=== PATIENT | female | born 1995 | race American Indian/Alaskan Native ===

== ENCOUNTER 2021-04-03 07:52 | Inpatient (IN) | payer MEDICAID ==
[~2021-04-03 07:52] MED LIST: EPINEPHrine 1 MG/1 ML Amp ONE; fentaNYL 100 MCG/2 ML SDV ITHECAL ONE
[2021-04-03] MEDS ORDERED: Ondansetron 4 MG/2 ML SDV IVPUSH PRN (09:07)
[2021-04-03] MEDS ORDERED: Tranexamic Acid 1,000 MG in Sodium Chloride 0.9% 100 ML IV PRN ×4 (09:07)
[2021-04-03] MEDS ORDERED: Acetaminophen 325 MG Tab PO PRN ×2 (09:07)
[2021-04-03] MEDS ORDERED: Simethicone 80 MG Tab.Chew PO PRN (09:07)
[2021-04-03] MEDS ORDERED: Carboprost Tromethamine 250 MCG/1 ML Amp IM PRN ×2 (09:07)
[2021-04-03] MEDS ORDERED: Misoprostol 25 MCG (1/4 of 100 MCG) Tab VAG PRN (09:07)
[2021-04-03] MEDS ORDERED: Lidocaine 1% 30 ML SDV INJECT PRN (09:07)
[2021-04-03] MEDS ORDERED: Lactated Ringers 1,000 ML IV ONE (09:07)
[2021-04-03] MEDS ORDERED: Misoprostol 400 MCG (4 X 100 MCG TAB) RECTAL PRN ×2 (09:07)
[2021-04-03] MEDS ORDERED: Methylergonovine 0.2 MG/1 ML Amp IM PRN (09:07)
[2021-04-03] MEDS ORDERED: Zolpidem 5 MG Tab PO PRN (09:07)
[2021-04-03] MEDS ORDERED: Benzocaine/Menthol 20%-0.5% Spray 78 GM Cannister TOP PRN (09:07)
[2021-04-03] MEDS ORDERED: Sodium Chloride 0.9% 10 ML Syringe FLUSH PRN (09:07)
[2021-04-03] MEDS ORDERED: Oxytocin 10 Units/1 ML SDV IM PRN (09:07)
[2021-04-03] MEDS ORDERED: Oxytocin/Normal Saline 30 UNIT/500 ML BAG IV SCH (09:15)
--- NOTE | 2021-04-03 13:34 | HP ---
CHIEF COMPLAINT: Induction of labor. HISTORY OF PRESENT ILLNESS: Ms. Louise is a 25-year-old, 2, para 1-0-0-1 female, last menstrual period 06/21/2020, EDC 03/30/2021, EGA 40-4/7 weeks' gestation, which is consistent with early ultrasound and last menstrual period. She is here for induction of labor. She has had all her care except for one visit in [place]. I saw her on 04/01/2021 in my office in [place]. She has not had any issues or concerns in her . She denies any nausea, vomiting, diarrhea, fever, chills, leakage of fluid, irregular contractions, dysuria, frequency, urgency with urination, leg pain, leg edema, back pain or abdominal pain. PAST MEDICAL HISTORY: Positive for anxiety and depression. No history of diabetes, hypertension, heart disease, cancer, autoimmune disorder, kidney disease, UTIs, seizure disorder, neurological disorder, psychiatric illness, liver disease, hepatitis, thromboembolic disease, history of blood transfusions, asthma, or breast lesions. SOCIAL HISTORY: She denies any tobacco use, alcohol use, or illicit drug use. She does not use caffeine. She denies any domestic violence issues. She feels safe at home. She wears seat belts. She is single. Her significant other is Julio C Potts. He is involved. FAMILY HISTORY: Positive for hypertension, hypercholesterolemia, diabetes, gallbladder issues, lung cancer. No family history of heart disease, kidney disease, thyroid disease. GYNECOLOGICAL HISTORY: Menarche at age 12. Menses once a month lasting for 7 days. She has never had abnormal Pap smear or history of STIs. OBSTETRICAL HISTORY: On May 18, 2011, delivery of 6 pounds 10 ounce female via normal spontaneous vaginal delivery of 40-3/7 weeks' gestation, no sequelae. MEDICATIONS: vitamins. PAST SURGICAL HISTORY: Appendectomy at age 11 and tonsillectomy at age 9. ALLERGIES: No known drug allergies. REVIEW OF SYSTEMS: All pertinent positive and negative review of systems per HPI. All other systems reviewed are negative. A 10-point review of systems discussed with the patient. She has no other issues. [place] depression scale score of 9. She has no thoughts of harming herself, the baby or anyone else. She plans on starting antidepressant medications after the baby is born. She sees Dony Cohen for counseling in [place]. OBJECTIVE: General: A well-developed, well-nourished female, in no acute distress. Vital Signs: Stable, afebrile. Blood pressure 129/65, pulse 84, respirations 18, O2 saturation 99%, temperature 97.8 degrees. HEENT: Unremarkable. Throat, normal oral mucosa. Neck: Supple without adenopathy. No thyromegaly. Respiratory: Breathing normal. Clear to auscultation. No wheezing, rhonchi, or rales noted. Cardiovascular: Regular rate and rhythm without murmurs. No bruits noted. Abdomen: Fundal height 40 cm. heart tones in the 130s to 140s. Reactive nonstress test. Occasional contraction. Genitourinary: Cervix is closed, 80%, -2, and soft. Extremities: No edema, erythema, or tenderness noted. Skin: No rashes, lesions, or ulcerations. Good turgor. Neurological: Sensory and motor intact. Psychiatric: Alert and oriented x3. Normal affect. 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 Extremities: No edema, erythema, or tenderness noted. LAB: A Positive, Ab screen- Neg, Rubella Immune, Syphilis- Neg, Hepatitis B- Neg, HIV- Neg, Group b strep - Neg Hgb- 10.8. ASSESSMENT: 1. A 40-4/7-week intrauterine . 2. Chronic anemia of . 3. Group B Streptococcus negative. 4. COVID-19 negative. PLAN: 1. The patient to undergo Cytotec cervical ripening and Pitocin induction if needed. 2. The risks, benefits, complications, side effects of induction of labor were discussed with the patient including infection, bleeding, tachysystole, increased risk for section. 3. All questions answered. 4. Despite all this, she still wants to have the induction accomplished. [facility] /[id number] MTDGia
[2021-04-03] MEDS: Lactated Ringers 1,000 ML IV SCH (14:20)
[2021-04-03] MEDS: Oxytocin/Normal Saline 30 UNIT/500 ML BAG IV SCH (14:43)
--- NOTE | 2021-04-03 18:59 | PCM.PNLD ---
Labor Progress Note - VS & Meds Vital Signs: Last Vital Signs Temp 97.8 F 04/03/21 16:30 Pulse 87 04/03/21 18:30 Resp 16 04/03/21 17:30 BP 115/56 L 04/03/21 18:30 Pulse Ox Active Medications: Current Medications Acetaminophen (Acetaminophen 325 Mg Tab) 650 mg PO Q4H PRN PRN Reason: Pain 1-3/Fever Benzocaine/Menthol (Benzocaine/Menthol 20%-0.5% [place] 78 Gm Cannister) 0 gm TOP Q4H PRN PRN Reason: Perineal comfort measures Carboprost Tromethamine (Carboprost Tromethamine 250 Mcg/1 Ml Amp) 250 mcg IM ASDIRECTED PRN PRN Reason: Excessive vaginal bleeding Docusate Sodium (Docusate Sodium 100 Mg Cap) 100 mg PO BID PRN PRN Reason: Constipation Lactated Ringer's (Ringers, Lactated) 1,000 mls @ 125 mls/hr IV ASDIRECTED TUSHAR Last Admin: 04/03/21 14:20 Dose: 125 mls/hr Documented by: Oxytocin/Sodium Chloride (Pitocin In Ns 30 Unit/500 Ml) 30 unit in 500 mls @ 2 mls/hr IV TITRATE TUSHAR; Protocol Last Titration: 04/03/21 17:55 Dose: 5 munits/min, 5 mls/hr Documented by: Tranexamic Acid 1,000 mg/ (Sodium Chloride) 110 mls @ 660 mls/hr IV ONETIME PRN PRN Reason: Bleeding Ibuprofen (Ibuprofen 800 Mg Tab) 800 mg PO Q8H PRN PRN Reason: Cramping Lidocaine HCl (Lidocaine 1% 30 Ml Sdv) 30 ml INJECT ASDIRECTED PRN PRN Reason: Perineal Repair Methylergonovine Maleate (Methylergonovine 0.2 Mg/1 Ml Amp) 0.2 mg IM ASDIRECTED PRN PRN Reason: Hemorrhage Misoprostol (Misoprostol 400 Mcg (4 X 100 Mcg Tab)) 800 mcg RECTAL ASDIRECTED PRN PRN Reason: Hemorrhage Misoprostol (Misoprostol 25 Mcg (1/4 Of 100 Mcg) Tab) 25 mcg VAG Q4H PRN PRN Reason: cervical ripening Last Admin: 04/03/21 09:52 Dose: 25 mcg Documented by: Ondansetron HCl (Ondansetron 4 Mg/2 Ml Sdv) 4 mg IVPUSH Q4H PRN PRN Reason: Nausea/Vomiting Oxytocin (Oxytocin 10 Units/1 Ml Sdv) 10 unit IM ONETIME PRN PRN Reason: Bleeding Prenat Multivit/Flight Engineer Inspector/Iron/Folic Ac ( Multivitamin With Calcium/Folic Acid/Iron Tab) 1 each PO DAILY TUSHAR Simethicone (Simethicone 80 Mg Tab.Chew) 80 mg PO Q4H PRN PRN Reason: Gas Sodium Chloride (Sodium Chloride 0.9% 10 Ml Syringe) 10 ml FLUSH ASDIRECTED PRN PRN Reason: Keep Vein Open Zolpidem Tartrate (Zolpidem 5 Mg Tab) 5 mg PO BEDTIME PRN PRN Reason: Insomnia Discontinued Medications Lactated Ringer's (Ringers, Lactated) 1,000 mls @ 1,000 mls/hr IV BOLUS ONE Stop: 04/03/21 10:06 - Uterine Contractions Uterine Monitoring Mode: External [place] Contraction Frequency (min): 2-2.5 Contraction Duration (sec): 50-90 Contraction Intensity: Moderate Uterine Resting Tone: Soft - Monitoring Monitor Mode: External Ultrasound Heart Rate (FHR) Baseline: 140 Heart Rate (FHR) Variability: Moderate (6-25 bmp) Decelerations: Variable Strip Review: Category I (AROM, Clear fluid) - Vaginal Exam Dilation (cm): 2 Effacement (Percent): 80 Station: -2 Cervical Position: Midposition Sterile Vaginal Exam Performed By: Harshad Lu
[2021-04-04] MEDS ORDERED: fentaNYL 100 MCG/2 ML SDV IVPUSH ONE (00:23)
[2021-04-04] MEDS ORDERED: Nalbuphine 10 MG/1 ML Vial IM ONE ×2 (00:24→08:00)
[2021-04-04] MEDS: Lactated Ringers 1,000 ML IV SCH ×3 (01:11→05:12)
[2021-04-04] MEDS ORDERED: fentaNYL 100 MCG/2 ML SDV ONE (02:46)
[2021-04-04] MEDS ORDERED: EPINEPHrine 1 MG/ML SDV ONE ×2 (02:47→06:33)
--- NOTE | 2021-04-04 03:25 | PCM.PRNOTE ---
- Free Text/Narrative Note: Requested to provide analgesia to full term patient in severe pain. Upon entering the room, patient is sitting on edge of bed complaining of severe abdominal/pelvic pain and discomfort. Procedure was discussed with patient including adverse outcomes and expectations. Pt consented to analgesia, SAB/IT. Pt placed into a proper sitting position. Landmarks for SAB/IT were identified and marked. Hands were washed and appropriate PPE was applied. Back was prepped with betadine x3. A sterile, transparent, fenestrated drape was applied. Excess betadine was removed. Using 3 mL of a 1% lidocaine solution, a skin wheel was placed at the L2/L3 interspace. A 24 ga (4 inch) [place] spinal needle was inserted until positive for CSF. Negative for heme or paresthesias. Injected fentanyl 25 mcg, sufentanil 25 mcg, and 7.5 mg of a 0.75% bupivacaine solution with an epi wash. Pt was placed left lateral tilt position for approximately 20 minutes. There were zero complications or adverse outcomes. Will continue to monitor. Procedure Date & Time: 04/04/2021 [id number]
[2021-04-04] MEDS ORDERED: diphenhydrAMINE 50 MG Cap PO ONE (05:06)
[2021-04-04] MEDS ORDERED: diphenhydrAMINE 25 MG Tab PO ONE (05:15)
[2021-04-04] MEDS ORDERED: Measles, Mumps & Rubella Vaccine 0.5 ML SDV SUBCUT ONE (07:00)
--- NOTE | 2021-04-04 07:54 | PCM.PRNOTE ---
- Free Text/Narrative Note: Requested to provide analgesia to full term patient in severe pain. Upon entering the room, patient is sitting on edge of bed complaining of severe abdominal/pelvic pain and discomfort. Procedure was discussed with patient including adverse outcomes and expectations. Pt consented to analgesia, SAB/IT. Pt placed into a proper sitting position. Landmarks for SAB/IT were identified and marked. Hands were washed and appropriate PPE was applied. Back was prepped with betadine x3. A sterile, transparent, fenestrated drape was applied. Excess betadine was removed. Using 3 mL of a 1% lidocaine solution, a skin wheel was placed at the L2/L3 interspace. A 24 ga (4 inch) [place] spinal needle was inserted until positive for CSF. Negative for heme or paresthesias. Injected sufentanil 25 mcg, and 10 mg of a 0.75% bupivacaine solution with an epi wash. Pt was placed left lateral tilt position for approximately 20 minutes. There were zero complications or adverse outcomes. Will continue to monitor. Procedure Date & Time: 04/04/21 [id number]
--- NOTE | 2021-04-04 10:11 | PCM.DEL ---
L & D Note - General Info Date of Service: 04/04/21 ( at 0945) Mother's Due Date: 03/30/21 (40 5/7 weeks gestation) - Delivery Note Labor: Augmented by ARM, Induced by Oxytocin Cervical Ripening Method: Other (see below) (Cytotec cervical ripening) Delivery Outcome: Livebirth Delivery Method: Spontaneous Vaginal Delivery-Single Infant Delivery Mode: Spontaneous Presentation: Vertex Nuchal Cord: Present (tight around the neck X 1), Reduced (after delivery of viable male infant) Anesthesia Type: Intrathecal Amniotic Fluid Description: Clear Episiotomy Type: None Laceration: 2nd Degree, Perineal Suture type: Vicryl Suture size: 3-0 Placenta: Intact, Spontaneous, Expressed Cord: 3 Vessels Estimated Blood Loss: 300 Resuscitation Needed: Yes [place]: Suctioned, Bulb Syringe, Stimulated, Warmed, [place] Used, Warmer Used Provider: Harshad Lu Second Stage Interventions: Reports: Second Nurse Assessed Progress of Descent, Second Nurse Reviewed Contraction Pattern, Second Nurse Reviewed Heart Tones, Pushing Effectively, Pushing, Pulls Own Legs Back, Pushing, Stirrups/Leg Supports Delivery Comments (Free Text/Narrative):: , OA, Viable male infant over a 2nd degree midline perineal laceration. Cord 3 vessel tightly around the neck X 1 Placenta delivered by simple expression intact. Labia, vagina and cervix inspected and intact. Mother and infant in good condition. Laaceration repaired with 3-0 Vicryl suture without difficulty. Viable male weighed 8 lbs 8oz, length: 20 3/4 inches, 's 8 at 1 minute and 9 at 5 minutes. Mother recovered well. to be bottle fed. - General Info Date of Service: 04/04/21 ( at 0945) Functional Status: Reports: Pain Controlled, Tolerating Diet - Review of Systems General: Reports: No Symptoms HEENT: Reports: No Symptoms Pulmonary: Reports: No Symptoms Cardiovascular: Reports: No Symptoms Gastrointestinal: Reports: No Symptoms Genitourinary: Reports: No Symptoms Musculoskeletal: Reports: No Symptoms Skin: Reports: No Symptoms Neurological: Reports: No Symptoms Psychiatric: Reports: No Symptoms - Patient Data Vitals - Most Recent: Last Vital Signs Temp 97.9 F 04/04/21 06:00 Pulse 98 04/04/21 06:57 Resp 16 04/04/21 01:00 BP 140/64 04/04/21 06:57 Pulse Ox 98 04/04/21 06:51 Weight - Most Recent: 183 lb I&O - Last 24 Hours: Intake & Output 04/03/21 04/04/21 04/04/21 22:59 06:59 14:59 Intake Total 360 2000 Balance 360 1999 Lab Results Last 24 Hours: Laboratory Results - last 24 hr 04/03/21 Range/Units 08:13 Blood Type A POSITIVE Gel Antibody Screen Negative Med Orders - Current: Current Medications Acetaminophen (Acetaminophen 325 Mg Tab) 650 mg PO Q4H PRN PRN Reason: Pain 1-3/Fever Benzocaine/Menthol (Benzocaine/Menthol 20%-0.5% [place] 78 Gm Cannister) 0 gm TOP Q4H PRN PRN Reason: Perineal comfort measures Carboprost Tromethamine (Carboprost Tromethamine 250 Mcg/1 Ml Amp) 250 mcg IM ASDIRECTED PRN PRN Reason: Excessive vaginal bleeding Docusate Sodium (Docusate Sodium 100 Mg Cap) 100 mg PO BID PRN PRN Reason: Constipation Lactated Ringer's (Ringers, Lactated) 1,000 mls @ 125 mls/hr IV ASDIRECTED TUSHAR Last Admin: 04/04/21 05:12 Dose: 125 mls/hr Documented by: Oxytocin/Sodium Chloride (Pitocin In Ns 30 Unit/500 Ml) 30 unit in 500 mls @ 2 mls/hr IV TITRATE TUSHAR; Protocol Last Titration: 04/04/21 06:05 Dose: 8 munits/min, 8 mls/hr Documented by: Tranexamic Acid 1,000 mg/ (Sodium Chloride) 110 mls @ 660 mls/hr IV ONETIME PRN PRN Reason: Bleeding Ibuprofen (Ibuprofen 800 Mg Tab) 800 mg PO Q8H PRN PRN Reason: Cramping Lidocaine HCl (Lidocaine 1% 30 Ml Sdv) 30 ml INJECT ASDIRECTED PRN PRN Reason: Perineal Repair Methylergonovine Maleate (Methylergonovine 0.2 Mg/1 Ml Amp) 0.2 mg IM ASDIRECTED PRN PRN Reason: Hemorrhage Misoprostol (Misoprostol 400 Mcg (4 X 100 Mcg Tab)) 800 mcg RECTAL ASDIRECTED PRN PRN Reason: Hemorrhage Misoprostol (Misoprostol 25 Mcg (1/4 Of 100 Mcg) Tab) 25 mcg VAG Q4H PRN PRN Reason: cervical ripening Last Admin: 04/03/21 09:52 Dose: 25 mcg Documented by: Ondansetron HCl (Ondansetron 4 Mg/2 Ml Sdv) 4 mg IVPUSH Q4H PRN PRN Reason: Nausea/Vomiting Last Admin: 04/04/21 02:20 Dose: 4 mg Documented by: Oxytocin (Oxytocin 10 Units/1 Ml Sdv) 10 unit IM ONETIME PRN PRN Reason: Bleeding Prenat Multivit/Real Estate Asset Manager/Iron/Folic Ac ( Multivitamin With Calcium/Folic Acid/Iron Tab) 1 each PO DAILY TUSHAR Simethicone (Simethicone 80 Mg Tab.Chew) 80 mg PO Q4H PRN PRN Reason: Gas Sodium Chloride (Sodium Chloride 0.9% 10 Ml Syringe) 10 ml FLUSH ASDIRECTED PRN PRN Reason: Keep Vein Open Zolpidem Tartrate (Zolpidem 5 Mg Tab) 5 mg PO BEDTIME PRN PRN Reason: Insomnia Discontinued Medications Diphenhydramine HCl (Diphenhydramine 50 Mg Cap) 50 mg PO ONETIME ONE Stop: 04/04/21 05:07 Last Admin: 04/04/21 05:22 Dose: 50 mg Documented by: Diphenhydramine HCl (Diphenhydramine 25 Mg Tab) 50 mg PO ONETIME ONE Stop: 04/04/21 05:16 Last Admin: 04/04/21 06:11 Dose: Not Given Documented by: Epinephrine HCl (Epinephrine 1 Mg/Ml Sdv) Confirm Administered Dose 1 mg .ROUTE .STK-MED ONE Stop: 04/04/21 02:48 Last Admin: 04/04/21 07:27 Dose: Not Given Documented by: Epinephrine HCl (Epinephrine 1 Mg/Ml Sdv) Confirm Administered Dose 1 mg .ROUTE .STK-MED ONE Stop: 04/04/21 06:34 Last Admin: 04/04/21 07:39 Dose: Not Given Documented by: Fentanyl (Fentanyl 100 Mcg/2 Ml Sdv) 100 mcg IVPUSH ONETIME ONE Stop: 04/04/21 00:24 Last Admin: 04/04/21 00:55 Dose: 100 mcg Documented by: Fentanyl (Fentanyl 100 Mcg/2 Ml Sdv) Confirm Administered Dose 100 mcg .ROUTE .STK-MED ONE Stop: 04/04/21 02:47 Last Admin: 04/04/21 07:27 Dose: Not Given Documented by: Lactated Ringer's (Ringers, Lactated) 1,000 mls @ 1,000 mls/hr IV BOLUS ONE Stop: 04/03/21 10:06 Last Admin: 04/04/21 07:25 Dose: Not Given Documented by: Measles/Mumps/Rubella Vaccine Live (Measles, Mumps & Rubella Vaccine 0.5 Ml Sdv) 0.5 ml SUBCUT .ONCE ONE Stop: 04/04/21 07:01 Nalbuphine HCl (Nalbuphine 10 Mg/1 Ml Vial) 20 mg IM ONETIME ONE Stop: 04/04/21 00:25 Nalbuphine HCl (Nalbuphine 10 Mg/1 Ml Vial) 20 mg IM ONETIME ONE Stop: 04/04/21 08:01 Last Admin: 04/04/21 08:01 Dose: 20 mg Documented by: Sufentanil Citrate (Sufentanil 50 Mcg/1 Ml Amp) Confirm Administered Dose 50 mcg .ROUTE .STK-MED ONE Stop: 04/04/21 02:48 Last Admin: 04/04/21 07:27 Dose: Not Given Documented by: Sufentanil Citrate (Sufentanil 50 Mcg/1 Ml Amp) Confirm Administered Dose 50 mcg .ROUTE .STK-MED ONE Stop: 04/04/21 06:34 Last Admin: 04/04/21 07:39 Dose: Not Given Documented by: - Exam Urinary Catheter Total Time: 0Days 0Hours General: Alert, Oriented, Cooperative, No Acute Distress HEENT: Pupils Equal, Pupils Reactive, EOMI, Mucous Membr. Moist/[place] Neck: Supple Lungs: Clear to Auscultation, Normal Respiratory Effort Cardiovascular: Regular Rate, Regular Rhythm, No Murmurs GI/Abdominal Exam: Normal Bowel Sounds, Soft, Non-Tender, No Organomegaly, No Distention Extremities: Normal Inspection, Normal Range of Motion, Non-Tender, No Pedal Edema Skin: Warm, Dry, Intact Psy/Mental Status: Alert, Normal Affect, Normal Mood - Problem List Review Problem List Initiated/Reviewed/Updated: Yes - My Orders Last 24 Hours: My Active Orders 04/03/21 09:07 Acetaminophen [TylenoL] 650 mg PO Q4H PRN Benzocaine/Menthol [Dermoplast Pain Relief 20%-0.5% [place]] See Dose Instructions TOP Q4H PRN Carboprost Tromethamine [Hemabate DS] 250 mcg IM ASDIRECTED PRN Docusate Sodium [Colace] 100 mg PO BID PRN Ibuprofen [Motrin] 800 mg PO Q8H PRN Lidocaine 1% [Xylocaine-MPF 1%] 30 ml INJECT ASDIRECTED PRN Methylergonovine [Methergine] 0.2 mg IM ASDIRECTED PRN Ondansetron [Zofran] 4 mg IVPUSH Q4H PRN Oxytocin [Pitocin] 10 unit IM ONETIME PRN Simethicone 80 mg PO Q4H PRN Sodium Chloride 0.9% [Saline Flush] 10 ml FLUSH ASDIRECTED PRN Tranexamic Acid [Cyklokapron] 1,000 mg Sodium Chloride 0.9% [Normal Saline] 100 ml IV ONETIME Zolpidem [Ambien] 5 mg PO BEDTIME PRN miSOPROStoL [Cytotec] 25 mcg VAG Q4H PRN miSOPROStoL [Cytotec] 800 mcg RECTAL ASDIRECTED PRN Electronic Heart Tones Internal [WOMSER] Per Unit Routine 04/03/21 09:08 Patient Status [ADT] Routine Communication Order [RC] ASDIRECTED Communication Order [RC] ASDIRECTED Notify Provider Vital Signs OB [RC] ASDIRECTED Notify Provider [RC] PRN Notify Provider [RC] PRN Notify Provider [RC] PRN Notify Provider [RC] STAT Up ad Amina [RC] PER UNIT ROUTINE Vaginal Exam [RC] PRN Vital Signs [RC] Assess Lochia [WOMSER] Per Unit Routine Assess Uterine Involution [WOMSER] Per Unit Routine Breast Pump [WOMSER] Per Unit Routine Ice Therapy [OM.PC] Per Unit Routine Perineal Care [OM.PC] Per Unit Routine Peripheral IV Insertion Adult [OM.PC] Urgent Saline Lock Insert [OM.PC] Routine Saline Lock Insert [OM.PC] Urgent Sitz Bath [OM.PC] Per Unit Routine 04/03/21 09:10 Peripheral IV Care [RC] 04/03/21 09:15 Lactated Ringers [Ringers, Lactated] 1,000 ml IV ASDIRECTED Oxytocin/Normal Saline [Pitocin in NS 30 UNIT/500 ML] 30 unit in 500 ml IV T ITRATE 04/03/21 09:19 Pump Management, Intrathecal [RC] ASDIRECTED 04/03/21 18:56 Nitrous Oxide Delivery [RC] ASDIRECTED OB Discontinue Nitrous Oxide [RC] ASDIRECTED RT Inhaled Nitric Oxide [RC] ASDIRECTED 04/03/21 19:00 Vaccines to be Administered [RC] PER UNIT ROUTINE 04/04/21 05:05 Urinary Catheter Assessment [RC] ASDIRECTED 04/04/21 05:15 Insert [place] Catheter [Insert Urinary Catheter] [OM.PC] Q24H 04/04/21 09:00 Vit with Ca/FA/Iron [ Plus Iron] 1 each PO DAILY - Assessment Assessment:: 40 5/7 week IUP , OA over second degree perineal laceration Viable male infant 8 lbs 8 oz 20 3/4 inches long 's 8 and 9. - Plan Plan:: Normal post care.
[2021-04-04] MEDS: Oxytocin/Normal Saline 30 UNIT/500 ML BAG IV SCH (11:11)
[2021-04-04] MEDS: Ibuprofen 800 MG Tab PO PRN (12:26)
[2021-04-04] MEDS: Prenatal Multivitamin with Calcium/Folic Acid/Iron Tab PO SCH (12:44)
[2021-04-04] MEDS: Docusate Sodium 100 MG Cap PO PRN (20:43)
[2021-04-05] MEDS: Ibuprofen 800 MG Tab PO PRN ×2 (04:55→12:42)
[2021-04-05] MEDS: Docusate Sodium 100 MG Cap PO PRN (08:35)
[2021-04-05] MEDS: Prenatal Multivitamin with Calcium/Folic Acid/Iron Tab PO SCH (08:35)
--- NOTE | 2021-04-05 10:24 | PCM.PNPP ---
- General Info Date of Service: 04/05/21 (PPD # 1 S/P ) Functional Status: Reports: Pain Controlled, Tolerating Diet, Ambulating, Urinating - Review of Systems General: Reports: No Symptoms HEENT: Reports: No Symptoms Pulmonary: Reports: No Symptoms Cardiovascular: Reports: No Symptoms Gastrointestinal: Reports: No Symptoms Genitourinary: Reports: No Symptoms Musculoskeletal: Reports: No Symptoms Skin: Reports: No Symptoms Neurological: Reports: No Symptoms Psychiatric: Reports: No Symptoms - General Info Date of Service: 04/05/21 (PPD # 1 S/P ) - Patient Data Vital Signs - Most Recent: Last Vital Signs Temp 97.1 F 04/05/21 08:00 Pulse 75 04/05/21 08:00 Resp 14 04/05/21 08:00 BP 125/58 L 04/05/21 08:00 Pulse Ox 98 04/04/21 19:55 Weight - Most Recent: 183 lb I&O - Last 24 Hours: Intake & Output 04/04/21 04/05/21 04/05/21 22:59 06:59 14:59 Intake Total 200 Balance 200 Med Orders - Current: Current Medications Acetaminophen (Acetaminophen 325 Mg Tab) 650 mg PO Q4H PRN PRN Reason: Pain 1-3/Fever Last Admin: 04/05/21 08:32 Dose: 650 mg Documented by: Benzocaine/Menthol (Benzocaine/Menthol 20%-0.5% [place] 78 Gm Cannister) 0 gm TOP Q4H PRN PRN Reason: Perineal comfort measures Last Admin: 04/04/21 12:29 Dose: 1 spray Documented by: Carboprost Tromethamine (Carboprost Tromethamine 250 Mcg/1 Ml Amp) 250 mcg IM ASDIRECTED PRN PRN Reason: Excessive vaginal bleeding Docusate Sodium (Docusate Sodium 100 Mg Cap) 100 mg PO BID PRN PRN Reason: Constipation Last Admin: 04/05/21 08:35 Dose: 100 mg Documented by: Lactated Ringer's (Ringers, Lactated) 1,000 mls @ 125 mls/hr IV ASDIRECTED TUSHAR Last Admin: 04/04/21 05:12 Dose: 125 mls/hr Documented by: Oxytocin/Sodium Chloride (Pitocin In Ns 30 Unit/500 Ml) 30 unit in 500 mls @ 2 mls/hr IV TITRATE TUSHAR; Protocol Last Titration: 04/04/21 14:45 Dose: 0 munits/min, 0 mls/hr Documented by: Tranexamic Acid 1,000 mg/ (Sodium Chloride) 110 mls @ 660 mls/hr IV ONETIME PRN PRN Reason: Bleeding Ibuprofen (Ibuprofen 800 Mg Tab) 800 mg PO Q8H PRN PRN Reason: Cramping Last Admin: 04/05/21 04:55 Dose: 800 mg Documented by: Lidocaine HCl (Lidocaine 1% 30 Ml Sdv) 30 ml INJECT ASDIRECTED PRN PRN Reason: Perineal Repair Methylergonovine Maleate (Methylergonovine 0.2 Mg/1 Ml Amp) 0.2 mg IM ASDIRECTED PRN PRN Reason: Hemorrhage Misoprostol (Misoprostol 400 Mcg (4 X 100 Mcg Tab)) 800 mcg RECTAL ASDIRECTED PRN PRN Reason: Hemorrhage Last Admin: 04/04/21 09:50 Dose: 800 mcg Documented by: Misoprostol (Misoprostol 25 Mcg (1/4 Of 100 Mcg) Tab) 25 mcg VAG Q4H PRN PRN Reason: cervical ripening Last Admin: 04/03/21 09:52 Dose: 25 mcg Documented by: Ondansetron HCl (Ondansetron 4 Mg/2 Ml Sdv) 4 mg IVPUSH Q4H PRN PRN Reason: Nausea/Vomiting Last Admin: 04/04/21 02:20 Dose: 4 mg Documented by: Oxytocin (Oxytocin 10 Units/1 Ml Sdv) 10 unit IM ONETIME PRN PRN Reason: Bleeding Prenat Multivit/[place]/Iron/Folic Ac ( Multivitamin With Calcium/Folic Acid/Iron Tab) 1 each PO DAILY TUSHAR Last Admin: 04/05/21 08:35 Dose: 1 each Documented by: Simethicone (Simethicone 80 Mg Tab.Chew) 80 mg PO Q4H PRN PRN Reason: Gas Sodium Chloride (Sodium Chloride 0.9% 10 Ml Syringe) 10 ml FLUSH ASDIRECTED PRN PRN Reason: Keep Vein Open Zolpidem Tartrate (Zolpidem 5 Mg Tab) 5 mg PO BEDTIME PRN PRN Reason: Insomnia Discontinued Medications Diphenhydramine HCl (Diphenhydramine 50 Mg Cap) 50 mg PO ONETIME ONE Stop: 04/04/21 05:07 Last Admin: 04/04/21 05:22 Dose: 50 mg Documented by: Diphenhydramine HCl (Diphenhydramine 25 Mg Tab) 50 mg PO ONETIME ONE Stop: 04/04/21 05:16 Last Admin: 04/04/21 06:11 Dose: Not Given Documented by: Epinephrine HCl (Epinephrine 1 Mg/Ml Sdv) Confirm Administered Dose 1 mg .ROUTE .STK-MED ONE Stop: 04/04/21 02:48 Last Admin: 04/04/21 07:27 Dose: Not Given Documented by: Epinephrine HCl (Epinephrine 1 Mg/Ml Sdv) Confirm Administered Dose 1 mg .ROUTE .STK-MED ONE Stop: 04/04/21 06:34 Last Admin: 04/04/21 07:39 Dose: Not Given Documented by: Fentanyl (Fentanyl 100 Mcg/2 Ml Sdv) 100 mcg IVPUSH ONETIME ONE Stop: 04/04/21 00:24 Last Admin: 04/04/21 00:55 Dose: 100 mcg Documented by: Fentanyl (Fentanyl 100 Mcg/2 Ml Sdv) Confirm Administered Dose 100 mcg .ROUTE .STK-MED ONE Stop: 04/04/21 02:47 Last Admin: 04/04/21 07:27 Dose: Not Given Documented by: Lactated Ringer's (Ringers, Lactated) 1,000 mls @ 1,000 mls/hr IV BOLUS ONE Stop: 04/03/21 10:06 Last Admin: 04/04/21 07:25 Dose: Not Given Documented by: Measles/Mumps/Rubella Vaccine Live (Measles, Mumps & Rubella Vaccine 0.5 Ml Sdv) 0.5 ml SUBCUT .ONCE ONE Stop: 04/04/21 07:01 Last Admin: 04/04/21 20:43 Dose: 0.5 ml Documented by: Nalbuphine HCl (Nalbuphine 10 Mg/1 Ml Vial) 20 mg IM ONETIME ONE Stop: 04/04/21 00:25 Last Admin: 04/04/21 12:45 Dose: Not Given Documented by: Nalbuphine HCl (Nalbuphine 10 Mg/1 Ml Vial) 20 mg IM ONETIME ONE Stop: 04/04/21 08:01 Last Admin: 04/04/21 08:01 Dose: 20 mg Documented by: Sufentanil Citrate (Sufentanil 50 Mcg/1 Ml Amp) Confirm Administered Dose 50 mcg .ROUTE .STK-MED ONE Stop: 04/04/21 02:48 Last Admin: 04/04/21 07:27 Dose: Not Given Documented by: Sufentanil Citrate (Sufentanil 50 Mcg/1 Ml Amp) Confirm Administered Dose 50 mcg .ROUTE .STK-MED ONE Stop: 04/04/21 06:34 Last Admin: 04/04/21 07:39 Dose: Not Given Documented by: - Interaction Infant Disposition, : [place] in Room with Family Infant Interaction: Holding Infant Infant Feeding: Bottle Fed Infant Support Person: Significant Other - Recovery Exam Fundal Tone: Firm Fundal Level: At Umbilicus Fundal Placement: Midline Lochia Amount: Moderate Lochia Color: Rubra/Red Perineum Description: Intact, Minimal Bruising/Swelling, Edematous Other Perinuem Description: repair midline 2nd degree lac begun per Dr Lu. Cytotec 800mcg ND. Episiotomy/Laceration: Approximated Bladder Status: Voiding - Exam General: Alert, Oriented, Cooperative, No Acute Distress HEENT: Pupils Equal, Pupils Reactive, EOMI, Mucous Membr. Moist/[place] Neck: Supple Lungs: Clear to Auscultation, Normal Respiratory Effort Cardiovascular: Regular Rate, Regular Rhythm GI/Abdominal Exam: Normal Bowel Sounds, Soft, Non-Tender, No Distention Extremities: Normal Inspection, Normal Range of Motion, Non-Tender, No Pedal Edema Skin: Warm, Dry, Intact Neurological: No New Focal Deficit, Normal Gait, Normal Speech, Normal Tone Psy/Mental Status: Alert, Normal Affect, Normal Mood - Problem List Review Problem List Initiated/Reviewed/Updated: Yes - My Orders Last 24 Hours: My Active Orders 04/05/21 10:19 Ready for Discharge [RC] PER UNIT ROUTINE - Assessment Assessment:: PPD # 1 S/P Doing well - Plan Plan:: Discharge to home Follow-up in 6 weeks with [place] [facility] [facility] provider. Ibuprofen for pain control PNV and Iron daily
--- NOTE | 2021-04-05 11:40 | DISCH ---
INDICATIONS FOR ADMISSION: Ms. Louise is a 25-year-old 2, para 1-0-0-1 female at 40-4/7 weeks gestation who reported to [facility] for induction of labor. On admission, she was closed, 80% effaced, and -2 station. Cytotec cervical ripening was given, which she tolerated quite well. Once she started dilating, Pitocin induction was started. Then, artificial rupture of membranes occurred with clear fluid noted. Once the patient dilated to complete, she started pushing. She had a normal spontaneous vaginal delivery of a viable male , OA, over a second-degree midline perineal laceration. There was a tight nuchal cord x1 that was reduced. The weighed 8 pounds 8 ounces, 20-3/4 inches long with scores of 8 at one minute, 9 at five minutes. The laceration was repaired with 3-0 Vicryl suture. The infant did quite well. She recovered. No complications occurred throughout her hospital stay. She was afebrile. Vital signs were stable. She tolerated her diet well and ambulated quite well. She had moderate and minimal lochia noted. She was discharged to home on day #1. LABORATORY AND DIAGNOSTIC STUDIES: On 04/03/2021, WBC 6.0, hemoglobin 10.8, hematocrit 34.0, and platelet count 289,000. SARS-COVID test was negative. 04/05/2021- WBC- 10.7, Hgb- 9.5, HCT- 29.9, PLT- 223 DISCHARGE INSTRUCTIONS: 1. Discharged to home. 2. Follow up with [facility] provider at 6-week checkup. 3. Ibuprofen 800 mg 1 tablet every 6 to 8 hours p.r.n. for pain. 4. Tylenol p.r.n. for pain. 5. vitamin and iron daily. 6. Discharge instructions including activity, followup, medications, diet, and wound care were discussed with the patient. She understands these and is willing to comply with these. 7. No douching, tampons, and intercourse for 6 weeks. DISCHARGE DIAGNOSES: 1. 40-5/7 weeks intrauterine . 2. Chronic anemia of . 3. Cytotec cervical ripening. 4. Pitocin induction. 5. Artificial rupture of membranes. 6. Normal spontaneous vaginal delivery of a viable male over a second- degree midline perineal laceration. 7. Viable male infant weighing 8 pounds 8 ounces, 20-3/4 inches long with scores of 8 at one minute and 9 at five minutes. 8. Tight nuchal cord x1. 9. Intrathecal anesthesia. [facility] /[id number] MTDD
== END 2021-04-05 13:30 | disposition home or self-care (01) | DRG 807 ==
LOC: DL.OBCHECK 07:52 → DL.OB 09:08 → OBSVTOIN 04-04 09:45
PROVIDERS: ADMIT Obstetrics & Gynecology; ATTEND Obstetrics & Gynecology
PROC: 10E0XZZ Delivery of Products of Conception, External Approach (ICD-10-PCS; principal; 2021-04-04)
PROC: 0KQM0ZZ Repair Perineum Muscle, Open Approach (ICD-10-PCS; 2021-04-04)
PROC: 10907ZC Drainage of Amniotic Fluid, Therapeutic from Products of Conception, Via Natural or Artificial Opening (ICD-10-PCS; 2021-04-04)
PROC: 3E0P7VZ Introduction of Hormone into Female Reproductive, Via Natural or Artificial Opening (ICD-10-PCS; 2021-04-04)
PROC: 3E033VJ Introduction of Other Hormone into Peripheral Vein, Percutaneous Approach (ICD-10-PCS; 2021-04-04)
PROC: 3E0R3BZ Introduction of Anesthetic Agent into Spinal Canal, Percutaneous Approach (ICD-10-PCS; 2021-04-04)
PROC: 00HU33Z Insertion of Infusion Device into Spinal Canal, Percutaneous Approach (ICD-10-PCS; 2021-04-04)
PROC: 3E0234Z Introduction of Serum, Toxoid and Vaccine into Muscle, Percutaneous Approach (ICD-10-PCS; 2021-04-04)
DX: O48.0 Post-term pregnancy (principal); Z37.0 Single live birth; O99.02 Anemia complicating childbirth; D64.9 Anemia, unspecified; O70.1 Second degree perineal laceration during delivery; Z3A.40 40 weeks gestation of pregnancy; O69.1XX0 Labor and delivery complicated by cord around neck, with compression, not applicable or unspecified; Z20.822 Contact with and (suspected) exposure to COVID-19; Z23 Encounter for immunization
CPT/HCPCS: 01967; 36415; 51701; 51702; 59409; 85025; 85027; 86850; 86900; 86901; 90471; 90707; A9270-GY; J0171; J2300; J2405; J2590; J3010; J7120; Q0163; U0002